=== PATIENT | female | born 1950 | race Caucasian/White ===

== ENCOUNTER 2019-04-13 12:26 | Emergency (ER) | payer MEDICARE ==
[~2019-04-13] VITALS: Ht 165.1 cm; Wt 81.6 kg
[2019-04-13 13:34] LABS: Basophils # (auto) 0 uL; Basophils % (auto) 0.4 % (0.0-2.0); Eosinophils # (auto) 0.2 uL; Eosinophils % (auto) 2.9 % (0.0-7.0); Hematocrit 51.3 % (36.0-46.0); Hemoglobin 17.6 g/dL (12.2-16.2); Lymphocytes # (auto) 1.3 uL; Lymphocytes % (auto) 20.8 % (10.0-50.0); Mean Corpuscular Hemoglobin 32.1 pg (28.0-32.0); Mean Corpuscular Hgb Conc. 34.3 g/dL (32.0-36.0); Mean Corpuscular Volume 93.5 fL (80.0-100.0); Monocytes # (auto) 0.4 uL; Monocytes % (auto) 7.2 % (0.0-12.0); Neutrophils # (auto) 4.2 uL; Neutrophils % (auto) 68.7 % (37.0-80.0); Nucleated Red Blood Cells % 0.1 %; Platelet Count (auto) 167 10^3/uL (140-450); Red Blood Cells 5.49 10^6/uL (4.0-5.20); Red Cell Distribution Width 11.9 % (11.8-14.3); White Blood Cell 6.1 10^3/uL (4.4-10.8)
[2019-04-13] MEDS ORDERED: SODIUM CHLORIDE 0.9% 1,000 ML IV ONE (13:46)
[2019-04-13 13:55] LABS: Albumin 4.2 g/dL (3.4-5.0); Anion Gap 3 (5-15); Blood Urea Nitrogen 22 mg/dL (7-18); Carbon Dioxide 30 mmol/L (21-32); Chloride 108 mmol/L (98-107); Glucose 116 mg/dL (74-106); Potassium 4.2 mmol/L (3.5-5.1); Sodium 141 mmol/L (136-145)
[2019-04-13 14:00] LABS: Alanine Aminotransferase 33 U/L (13-56); Alkaline Phosphatase 84 U/L (45-117); Aspartate Aminotransferase 21 U/L (15-37); BUN/Creatinine Ratio 20.8; Bilirubin, Total 0.7 mg/dL (0.2-1.0); GFR African American 66 mL/min; GFR Non-African American 55 mL/min; Total Protein 7.7 g/dL (6.4-8.2)
[2019-04-13 14:11] LABS: INR 1.01 (0.9-1.15); Partial Thromboplastin Time 28.1 sec (23.64-32.05)
[2019-04-13] MEDS ORDERED: IOHEXOL 350 MG/ML 100ML IJ ONE (15:27)
[2019-04-13 17:00] LABS: Urine Bacteria FEW /hpf (None Seen); Urine Blood Negative /uL (Negative); Urine Mucus FEW (None Seen); Urine Specific Gravity 1.025 (1.001-1.035); Urine WBC 8 /hpf (0 - 5)
[2019-04-13 17:05] VITALS: BP 160/94
[2019-04-13 17:09] LABS: Alcohol, Urine < 3.0 mg/dL (0-5); Amphetamine Screen, Urine NEGATIVE (NEGATIVE); Barbiturate Scree,Urine NEGATIVE (NEGATIVE); Benzodiazephine Screen, Urine NEGATIVE (NEGATIVE); Cannabinoid Screen, Urine NEGATIVE (NEGATIVE); Cocaine Screen, Urine NEGATIVE (NEGATIVE); Opiate Scree,Urine NEGATIVE (NEGATIVE); Phencyclidine Screen, Urine NEGATIVE (NEGATIVE)
== END 2019-04-13 18:07 | disposition home or self-care (01) ==
LOC: EDBD 12:26 → ER 12:30
DX: R55 Syncope and collapse (principal); M54.2 Cervicalgia; R51 Headache; I12.9 Hypertensive chronic kidney disease with stage 1 through stage 4 chronic kidney disease, or unspecified chronic kidney disease; N18.9 Chronic kidney disease, unspecified; N39.0 Urinary tract infection, site not specified; R79.1 Abnormal coagulation profile; E78.5 Hyperlipidemia, unspecified; Z86.73 Personal history of transient ischemic attack (TIA), and cerebral infarction without residual deficits; Z90.710 Acquired absence of both cervix and uterus; Z87.891 Personal history of nicotine dependence; Z88.0 Allergy status to penicillin
CPT/HCPCS: 36415; 70450; 71046; 71275; 80053; 80307; 81001; 83735; 84443; 84484; 85025; 85379; 85610; 85730; 93005; 96360; 96361; 99284; Q9967

== ENCOUNTER 2019-08-12 14:36 | Inpatient (IN) | payer MEDICARE ==
[~2019-08-12] VITALS: Ht 165.1 cm; Wt 83.5 kg
[2019-08-12] MEDS ORDERED: LORazepam 2MG/ML-1ML VIAL IV ONE (15:00)
[2019-08-12] MEDS ORDERED: LABETALOL HCL 5 MG/ML 4ML SYRINGE IV ONE (15:15)
[2019-08-12 15:24] LABS: Basophils # (auto) 0.1 10 ^3/uL (0-0.2); Basophils % (auto) 0.8 % (0.0-2.0); Eosinophils # (auto) 0.4 10 ^3/uL (0-0.8); Eosinophils % (auto) 5.9 % (0.0-7.0); Hematocrit 50.6 % (36.0-46.0); Hemoglobin 17.2 g/dL (12.2-16.2); Lymphocytes # (auto) 1.7 10 ^3/uL (0.4-5.4); Lymphocytes % (auto) 26.3 % (10.0-50.0); Mean Corpuscular Hemoglobin 31.9 pg (28.0-32.0); Mean Corpuscular Hgb Conc. 33.9 g/dL (32.0-36.0); Monocytes # (auto) 0.6 10 ^3/uL (0-1.3); Monocytes % (auto) 8.5 % (0.0-12.0); Neutrophils # (auto) 3.9 10 ^3/uL (1.6-8.6); Neutrophils % (auto) 58.5 % (37.0-80.0); Nucleated Red Blood Cells % 0.1 %; Platelet Count (auto) 156 10^3/uL (140-450); Red Blood Cells 5.38 10^6/uL (4.0-5.20); Red Cell Distribution Width 12.2 % (11.8-14.3); White Blood Cell 6.6 10^3/uL (4.4-10.8)
[2019-08-12 15:45] LABS: Alanine Aminotransferase 25 U/L (13-56); Albumin 3.5 g/dL (3.4-5.0); Anion Gap 4 (5-15); Aspartate Aminotransferase 17 U/L (15-37); Blood Urea Nitrogen 20 mg/dL (7-18); Calcium 9.2 mg/dL (8.5-10.1); Carbon Dioxide 31 mmol/L (21-32); Chloride 104 mmol/L (98-107); GFR African American 67 mL/min; GFR Non-African American 56 mL/min; Glucose 121 mg/dL (74-106); Potassium 3.6 mmol/L (3.5-5.1); Sodium 139 mmol/L (136-145)
[2019-08-12 15:50] LABS: Alkaline Phosphatase 89 U/L (45-117); Bilirubin, Total 0.4 mg/dL (0.2-1.0); Total Protein 7.3 g/dL (6.4-8.2)
[2019-08-12] MEDS ORDERED: SODIUM CHLORIDE 0.9% 1,000 ML IV ONE (17:05)
[2019-08-12 17:15] LABS: Urine Bacteria FEW /hpf (None Seen); Urine Blood Negative /uL (Negative); Urine Specific Gravity 1.011 (1.001-1.035); Urine WBC 2 /hpf (0 - 5)
[2019-08-12] MEDS ORDERED: hydrALAZINE HCL 20 MG/ML VL IV PRN (17:15)
[2019-08-12] MEDS ORDERED: amLODIPine BESYLATE 5 MG TAB PO ONE (17:15)
[2019-08-12] MEDS ORDERED: LISINOPRIL 20 MG TAB PO ONE (17:15)
[2019-08-12] MEDS: SOD CHL 0.45% 1,000 ML IV SCH (17:15)
[2019-08-12] MEDS ORDERED: NITROGLYCERIN 0.4 MG SL TAB SL PRN (17:30)
[2019-08-12] MEDS ORDERED: ALUM & MAG HYDROX-SIMETH LIQ(MAALOX) 30 ML PO PRN (17:30)
[2019-08-12] MEDS ORDERED: DOCUSATE SOD 100 MG CAP PO PRN (17:30)
[2019-08-12] MEDS ORDERED: ONDANSETRON HCL 4 MG/2 ML VIAL IV PRN (17:30)
[2019-08-12] MEDS ORDERED: LORazepam 0.5 MG TAB PO PRN (17:30)
[2019-08-12] MEDS ORDERED: MORPHINE SULF INJ 2 MG/ML SYRINGE 1ML IV PRN ×2 (17:30)
[2019-08-12] MEDS: FUROSEMIDE 20 MG/2 ML VIAL IV SCH (17:52)
[2019-08-12 18:06] LABS: Cholesterol 254 mg/dL (< 200)
[2019-08-12 18:09] LABS: HDL Cholesterol 45 mg/dL (40-59); Triglycerides 465 mg/dL (< 150)
[2019-08-12 20:40] VITALS: BP 117/80
[2019-08-12] MEDS: ATORVASTATIN 20 MG TAB PO SCH (21:26)
[2019-08-12 22:04] VITALS: BP 117/80
[2019-08-13 05:00] VITALS: BP 145/96
[2019-08-13] MEDS: FUROSEMIDE 20 MG/2 ML VIAL IV SCH ×2 (05:36→17:19)
[2019-08-13] MEDS: SOD CHL 0.45% 1,000 ML IV SCH ×2 (06:35→08:13)
[2019-08-13 08:00] VITALS: BP 146/91
[2019-08-13] MEDS: ASPirin 81 mg TAB PO SCH (08:41)
[2019-08-13] MEDS: amLODIPine BESYLATE 5 MG TAB PO SCH (08:41)
[2019-08-13] MEDS: ENOXAPARIN SOD 40 MG/0.4 ML SYRINGE SC SCH (08:42)
[2019-08-13] MEDS: HYDROcodone-ACET 5/325MG TAB PO PRN (08:42)
[2019-08-13] MEDS: LISINOPRIL 20 MG TAB PO SCH (08:42)
[2019-08-13 08:54] LABS: Basophils # (auto) 0 10 ^3/uL (0-0.2); Basophils % (auto) 0.4 % (0.0-2.0); Eosinophils # (auto) 0.4 10 ^3/uL (0-0.8); Eosinophils % (auto) 5.3 % (0.0-7.0); Hematocrit 51.8 % (36.0-46.0); Hemoglobin 17.4 g/dL (12.2-16.2); Lymphocytes # (auto) 1.1 10 ^3/uL (0.4-5.4); Lymphocytes % (auto) 15.3 % (10.0-50.0); Mean Corpuscular Hemoglobin 31.9 pg (28.0-32.0); Mean Corpuscular Hgb Conc. 33.7 g/dL (32.0-36.0); Mean Corpuscular Volume 94.8 fL (80.0-100.0); Monocytes # (auto) 0.5 10 ^3/uL (0-1.3); Monocytes % (auto) 7.7 % (0.0-12.0); Neutrophils # (auto) 5.1 10 ^3/uL (1.6-8.6); Neutrophils % (auto) 71.3 % (37.0-80.0); Nucleated Red Blood Cells % 0.1 %; Platelet Count (auto) 148 10^3/uL (140-450); Red Blood Cells 5.46 10^6/uL (4.0-5.20); Red Cell Distribution Width 12.1 % (11.8-14.3); White Blood Cell 7.1 10^3/uL (4.4-10.8)
[2019-08-13 09:05] LABS: Albumin 3.9 g/dL (3.4-5.0); Calcium 8.9 mg/dL (8.5-10.1); Magnesium 2.9 mg/dL (1.6-2.6); Potassium 4.1 mmol/L (3.5-5.1)
[2019-08-13 09:10] LABS: BUN/Creatinine Ratio 20.8; Bilirubin, Total 0.7 mg/dL (0.2-1.0); INR 0.98 (0.9-1.15); Partial Thromboplastin Time 27.1 sec (23.64-32.05); Phosphorus 4.1 mg/dL (2.5-4.90); Total Protein 7.4 g/dL (6.4-8.2)
[2019-08-13] MEDS ORDERED: FUROSEMIDE 20 MG/2 ML VIAL IV SCH (10:00)
[2019-08-13] MEDS ORDERED: ENOXAPARIN SOD 40 MG/0.4 ML SYRINGE SC SCH (10:00)
[2019-08-13 12:00] VITALS: BP 135/70
[2019-08-13] MEDS ORDERED: ACET-1156 PO (15:25)
[2019-08-13 16:00] VITALS: BP 165/120
[2019-08-13] MEDS ORDERED: LORazepam 2MG/ML-1ML VIAL IV PRN (19:15)
[2019-08-13] MEDS: ATORVASTATIN 20 MG TAB PO SCH (22:38)
[2019-08-13 22:44] VITALS: BP 152/103
[2019-08-14] VITALS (7 sets, daily range): BP systolic 93–127; BP diastolic 6–76
[2019-08-14] MEDS: FUROSEMIDE 20 MG/2 ML VIAL IV SCH ×2 (06:22→18:00)
[2019-08-14] MEDS: LISINOPRIL 20 MG TAB PO SCH (10:00)
[2019-08-14] MEDS: ENOXAPARIN SOD 40 MG/0.4 ML SYRINGE SC SCH (10:00)
[2019-08-14] MEDS: amLODIPine BESYLATE 5 MG TAB PO SCH (10:00)
[2019-08-14] MEDS: SOD CHL 0.45% 1,000 ML IV SCH ×2 (10:08→23:00)
[2019-08-14] MEDS ORDERED: IOHEXOL 350 MG/ML 100ML IJ ONE (11:27)
[2019-08-14] MEDS: ASPirin 81 mg TAB PO SCH (14:43)
[2019-08-14] MEDS: ATORVASTATIN 20 MG TAB PO SCH (22:02)
[2019-08-15] MEDS: HYDROcodone-ACET 5/325MG TAB PO PRN (03:16)
[2019-08-15 05:00] VITALS: BP 139/80
[2019-08-15] MEDS: FUROSEMIDE 20 MG/2 ML VIAL IV SCH (06:07)
[2019-08-15 08:00] VITALS: BP 93/70
[2019-08-15] MEDS: LISINOPRIL 20 MG TAB PO SCH (09:46)
[2019-08-15] MEDS: ENOXAPARIN SOD 40 MG/0.4 ML SYRINGE SC SCH (09:46)
[2019-08-15] MEDS: amLODIPine BESYLATE 5 MG TAB PO SCH (09:46)
[2019-08-15] MEDS: ASPirin 81 mg TAB PO SCH (11:12)
[2019-08-15 11:49] VITALS: BP 93/70
[2019-08-15] MEDS: SOD CHL 0.45% 1,000 ML IV SCH (11:55)
[2019-08-15 12:00] VITALS: BP 99/61
== END 2019-08-15 15:29 | disposition home or self-care (01) | DRG 305 ==
LOC: EDBD 14:36 → ER 14:36 → TELE 14:37 → TELE-EAST 20:40
PROVIDERS: ADMIT Hospitalist; ATTEND Family Medicine
DX: I16.1 Hypertensive emergency (principal); E86.0 Dehydration; D75.1 Secondary polycythemia; E78.5 Hyperlipidemia, unspecified; F32.9 Major depressive disorder, single episode, unspecified; I12.9 Hypertensive chronic kidney disease with stage 1 through stage 4 chronic kidney disease, or unspecified chronic kidney disease; G47.10 Hypersomnia, unspecified; R00.1 Bradycardia, unspecified; E78.00 Pure hypercholesterolemia, unspecified; F17.200 Nicotine dependence, unspecified, uncomplicated; I25.10 Atherosclerotic heart disease of native coronary artery without angina pectoris; R73.9 Hyperglycemia, unspecified; N18.2 Chronic kidney disease, stage 2 (mild); Z79.899 Other long term (current) drug therapy; Z82.49 Family history of ischemic heart disease and other diseases of the circulatory system; Z86.73 Personal history of transient ischemic attack (TIA), and cerebral infarction without residual deficits; Z83.3 Family history of diabetes mellitus; Z90.710 Acquired absence of both cervix and uterus; Z91.19 Patient's noncompliance with other medical treatment and regimen
CPT/HCPCS: 36415; 36600; 70450; 70498; 70551; 71045; 80053; 80061; 81001; 82805; 83036; 83735; 83880; 84100; 84484; 85025; 85610; 85730; 93886; 95819; 99291; G0378; J2405; J3490

== ENCOUNTER 2020-10-15 18:02 | Emergency (ER) | payer MEDICARE, OTHER ==
[~2020-10-15] VITALS: Ht 165.1 cm; Wt 83.9 kg
[~2020-10-15 18:02] MED LIST: ACET-1156 PO
[2020-10-15] MEDS ORDERED: LABETALOL HCL 5 MG/ML 4ML SYRINGE IV ONE ×2 (18:45→21:30)
[2020-10-15 19:35] LABS: Basophils # (auto) 0.1 10 ^3/uL (0-0.2); Eosinophils # (auto) 0.2 10 ^3/uL (0-0.8); Eosinophils % (auto) 2.1 % (0.0-7.0); Nucleated Red Blood Cells % 0.1 %
[2020-10-15 19:36] LABS: Basophils % (auto) 0.8 % (0.0-2.0); Hematocrit 52.9 % (36.0-46.0); Hemoglobin 18.6 g/dL (12.2-16.2); Lymphocytes % (auto) 20.8 % (10.0-50.0); Mean Corpuscular Hemoglobin 31.6 pg (28.0-32.0); Mean Corpuscular Hgb Conc. 35.2 g/dL (32.0-36.0); Mean Corpuscular Volume 89.7 fL (80.0-100.0); Monocytes % (auto) 9.8 % (0.0-12.0); Neutrophils # (auto) 6.5 10 ^3/uL (1.6-8.6); Neutrophils % (auto) 66.5 % (37.0-80.0); Red Cell Distribution Width 12.4 % (11.8-14.3); White Blood Cell 9.8 10^3/uL (4.4-10.8)
[2020-10-15 19:48] LABS: Alanine Aminotransferase 25 U/L (13-56); Albumin 3.7 g/dL (3.4-5.0); Anion Gap 7 (5-15); Aspartate Aminotransferase 14 U/L (15-37); BUN/Creatinine Ratio 18.1; Blood Urea Nitrogen 17 mg/dL (7-18); Calcium 8.9 mg/dL (8.5-10.1); Carbon Dioxide 26 mmol/L (21-32); Chloride 103 mmol/L (98-107); GFR African American 76 mL/min; GFR Non-African American 63 mL/min; Glucose 119 mg/dL (74-106); Magnesium 2.7 mg/dL (1.6-2.6); Potassium 3.4 mmol/L (3.5-5.1); Sodium 136 mmol/L (136-145)
[2020-10-15 19:58] LABS: Alkaline Phosphatase 96 U/L (45-117); Bilirubin, Total 0.7 mg/dL (0.2-1.0); Total Protein 7.4 g/dL (6.4-8.2)
[2020-10-16 01:02] VITALS: BP 150/68
== END 2020-10-16 01:03 | disposition home or self-care (01) ==
LOC: ER 18:02 → EDBD 18:02 → ER 10-16 01:03
DX: R51.9 Headache, unspecified (principal); R11.2 Nausea with vomiting, unspecified; I10 Essential (primary) hypertension; I45.10 Unspecified right bundle-branch block; E78.00 Pure hypercholesterolemia, unspecified; F32.9 Major depressive disorder, single episode, unspecified; Z86.73 Personal history of transient ischemic attack (TIA), and cerebral infarction without residual deficits; Z90.710 Acquired absence of both cervix and uterus; Z90.89 Acquired absence of other organs
CPT/HCPCS: 36415; 70450; 71045; 80053; 83735; 84484; 85025; 93005; 96374; 96376; 99285; J3490

== ENCOUNTER 2021-03-03 20:53 | Inpatient (IN) | payer OTHER ==
[~2021-03-03] VITALS: Ht 165.1 cm; Wt 110.6 kg
[2021-03-03] MEDS ORDERED: LABETALOL HCL 5 MG/ML 4ML SYRINGE IV ONE (21:15)
[2021-03-03 22:13] LABS: Basophils # (auto) 0.1 10 ^3/uL (0-0.2); Eosinophils # (auto) 0.2 10 ^3/uL (0-0.8); Mean Corpuscular Hemoglobin 30.9 pg (28.0-32.0); Mean Corpuscular Hgb Conc. 33.2 g/dL (32.0-36.0); Red Cell Distribution Width 12.3 % (11.8-14.3)
[2021-03-03 22:15] LABS: Eosinophils % (auto) 2.3 % (0.0-7.0); Hemoglobin 18.8 g/dL (12.2-16.2); Lymphocytes # (auto) 1.6 10 ^3/uL (0.4-5.4); Lymphocytes % (auto) 21.7 % (10.0-50.0); Monocytes # (auto) 0.6 10 ^3/uL (0-1.3); Monocytes % (auto) 8.7 % (0.0-12.0); Neutrophils # (auto) 4.8 10 ^3/uL (1.6-8.6); Neutrophils % (auto) 66.3 % (37.0-80.0); Nucleated Red Blood Cells % 0.1 %; Red Blood Cells 6.09 10^6/uL (4.0-5.20); White Blood Cell 7.2 10^3/uL (4.4-10.8)
[2021-03-03 22:18] LABS: Hematocrit 56.7 % (36.0-46.0)
[2021-03-03] MEDS ORDERED: OXYMETAZOLINE HCL 0.05 % NASAL SPRAY 15ML EACHNOSTRI ONE (22:30)
[2021-03-03 22:32] LABS: Albumin 3.7 g/dL (3.4-5.0); Calcium 8.7 mg/dL (8.5-10.1); Potassium 4.1 mmol/L (3.5-5.1)
[2021-03-03 22:33] LABS: INR 0.99 (0.9-1.15)
[2021-03-03 22:39] LABS: Bilirubin, Total 0.5 mg/dL (0.2-1.0); Total Protein 7.4 g/dL (6.4-8.2)
[2021-03-03 22:41] LABS: BUN/Creatinine Ratio 22.3
[2021-03-03] MEDS ORDERED: hydrALAZINE HCL 20 MG/ML VL IV ONE (22:45)
[2021-03-03] MEDS ORDERED: ATROPINE SULF 0.5 MG/5ML SYR ONE (23:17)
[2021-03-03] MEDS ORDERED: EPINEPHrine HCL 1 MG/10 ML SYRG ONE (23:19)
[2021-03-04] MEDS ORDERED: SODIUM CHLORIDE 0.9% 1,000 ML IV ONE
[2021-03-04 01:38] LABS: Magnesium 1.1 mg/dL (1.6-2.6)
[2021-03-04] MEDS: MAGNESIUM SULFATE 1GM/100ML 100 ML IV SCH ×3 (02:06→03:08)
[2021-03-04] MEDS ORDERED: NITROGLYCERIN 0.4 MG SL TAB SL PRN (05:30)
[2021-03-04] MEDS ORDERED: MORPHINE SULFATE INJECTION 2 MG/ML SYRG IV PRN (05:30)
[2021-03-04] MEDS ORDERED: ACETAMINOPHEN 325 MG TAB PO PRN (05:30)
[2021-03-04] MEDS ORDERED: DOCUSATE SOD 100 MG CAP PO PRN (05:30)
[2021-03-04] MEDS ORDERED: DOPamine 1600MCG/ML D5W 250 ML IV ONE (05:50)
[2021-03-04] MEDS ORDERED: DOPamine 1600MCG/ML D5W 250 ML IV SCH ×2 (06:00)
[2021-03-04 06:40] VITALS: BP 145/80
[2021-03-04 08:00] VITALS: BP 145/56
[2021-03-04] MEDS: FAMOTIDINE (10MG/ML) 2ML VL IV SCH (08:01)
[2021-03-04] MEDS: MULTIPLE VITAMIN TAB PO SCH (08:01)
[2021-03-04 08:09] LABS: Basophils # (auto) 0 10 ^3/uL (0-0.2); Basophils % (auto) 0.5 % (0.0-2.0); Eosinophils # (auto) 0.1 10 ^3/uL (0-0.8); Eosinophils % (auto) 1.5 % (0.0-7.0); Hematocrit 50.7 % (36.0-46.0); Hemoglobin 17.1 g/dL (12.2-16.2); Lymphocytes # (auto) 1.2 10 ^3/uL (0.4-5.4); Lymphocytes % (auto) 14.7 % (10.0-50.0); Mean Corpuscular Hemoglobin 31.2 pg (28.0-32.0); Mean Corpuscular Hgb Conc. 33.7 g/dL (32.0-36.0); Mean Corpuscular Volume 92.6 fL (80.0-100.0); Monocytes # (auto) 0.7 10 ^3/uL (0-1.3); Monocytes % (auto) 8.9 % (0.0-12.0); Neutrophils # (auto) 6.1 10 ^3/uL (1.6-8.6); Neutrophils % (auto) 74.4 % (37.0-80.0); Nucleated Red Blood Cells % 0.1 %; Red Blood Cells 5.47 10^6/uL (4.0-5.20); Red Cell Distribution Width 12.4 % (11.8-14.3); White Blood Cell 8.2 10^3/uL (4.4-10.8)
[2021-03-04 08:26] LABS: Alanine Aminotransferase 17 U/L (13-56); Albumin 3.2 g/dL (3.4-5.0); Anion Gap 7 (5-15); Aspartate Aminotransferase 12 U/L (15-37); BUN/Creatinine Ratio 26.1; Blood Urea Nitrogen 23 mg/dL (7-18); Calcium 8.2 mg/dL (8.5-10.1); Carbon Dioxide 27 mmol/L (21-32); Chloride 109 mmol/L (98-107); GFR African American 82 mL/min; GFR Non-African American 68 mL/min; Glucose 131 mg/dL (74-106); Potassium 4.4 mmol/L (3.5-5.1); Sodium 143 mmol/L (136-145)
[2021-03-04 08:28] LABS: Alkaline Phosphatase 74 U/L (45-117); Bilirubin, Total 0.6 mg/dL (0.2-1.0); Total Protein 6.4 g/dL (6.4-8.2)
[2021-03-04 09:00] VITALS: BP 145/86
[2021-03-04] MEDS ORDERED: INFLUENZA QUAD 2021-2022 0.5 ML SYRG IM ONE (09:15)
[2021-03-04] MEDS ORDERED: HEPARIN SODIUM (PORCINE) 5000 UNITS/ML 1ML VIAL ONE (09:29)
[2021-03-04] MEDS ORDERED: MIDAZOLAM HCL 2MG/2ML 2ml VIAL (1mg/ml) ONE (09:30)
[2021-03-04] MEDS ORDERED: IODIXANOL 320MG/ML 100ML BTL IV ONE (09:30)
[2021-03-04] MEDS ORDERED: fentaNYL CITRATE 100 MCG/2 ML VL ONE (09:30)
[2021-03-04] MEDS ORDERED: LIDOCAINE 2%HCL (LOCAL ANESTH.) INJ 20ML MDV ONE (09:30)
[2021-03-04] MEDS ORDERED: VERAPAMIL 2.5MG/ML INJ 2ML VIAL IV ONE (09:30)
[2021-03-04] MEDS ORDERED: ANGIOMAX 250 MG VIAL IV ONE (09:31)
[2021-03-04] MEDS ORDERED: SODIUM CHL 0.9% 50 ML ONE (09:31)
[2021-03-04] MEDS ORDERED: ZINC SULFATE 220mg CAP or TAB PO SCH (10:00)
[2021-03-04] MEDS ORDERED: ASCORBIC ACID 500 MG TAB PO SCH (10:00)
[2021-03-04 10:34] LABS: INR 1.01 (0.9-1.15); Partial Thromboplastin Time 25.2 sec (23.6-33.0)
[2021-03-04 10:44] LABS: Cholesterol 250 mg/dL (< 200)
[2021-03-04 10:46] LABS: HDL Cholesterol 47 mg/dL (40-59); LDL Cholesterol 171 mg/dL (< 100); Triglycerides 134 mg/dL (< 150)
[2021-03-04] MEDS ORDERED: TICAGRELOR 90 MG TAB ONE (11:15)
[2021-03-04] MEDS ORDERED: ASPirin 325 MG TAB ONE (11:21)
[2021-03-04 17:00] VITALS: BP 138/91
[2021-03-04 21:30] VITALS: BP 132/85
[2021-03-04] MEDS: TICAGRELOR 90 MG TAB PO SCH (21:41)
[2021-03-04] MEDS: ATORVASTATIN 20 MG TAB PO SCH (21:41)
[2021-03-05] MEDS: HYDROcodone-ACET 5/325MG TAB PO PRN ×2 (03:55→21:41)
[2021-03-05 05:00] VITALS: BP 157/89
[2021-03-05 05:52] LABS: Basophils # (auto) 0.1 10 ^3/uL (0-0.2); Basophils % (auto) 1.2 % (0.0-2.0); Eosinophils # (auto) 0.3 10 ^3/uL (0-0.8); Eosinophils % (auto) 4.3 % (0.0-7.0); Hematocrit 46.3 % (36.0-46.0); Hemoglobin 15.5 g/dL (12.2-16.2); Lymphocytes % (auto) 15.2 % (10.0-50.0); Mean Corpuscular Hgb Conc. 33.5 g/dL (32.0-36.0); Mean Corpuscular Volume 92.5 fL (80.0-100.0); Monocytes # (auto) 0.7 10 ^3/uL (0-1.3); Monocytes % (auto) 9.7 % (0.0-12.0); Neutrophils # (auto) 4.7 10 ^3/uL (1.6-8.6); Neutrophils % (auto) 69.6 % (37.0-80.0); Nucleated Red Blood Cells % 0.1 %; Red Cell Distribution Width 12.2 % (11.8-14.3); White Blood Cell 6.8 10^3/uL (4.4-10.8)
[2021-03-05 06:14] LABS: BUN/Creatinine Ratio 24.4; Calcium 8.4 mg/dL (8.5-10.1); Potassium 4.1 mmol/L (3.5-5.1)
[2021-03-05 06:16] LABS: Bilirubin, Total 0.8 mg/dL (0.2-1.0); Total Protein 5.5 g/dL (6.4-8.2)
[2021-03-05 09:00] VITALS: BP 128/66
[2021-03-05] MEDS: FAMOTIDINE (10MG/ML) 2ML VL IV SCH (10:00)
[2021-03-05] MEDS: MULTIPLE VITAMIN TAB PO SCH (10:00)
[2021-03-05] MEDS: TICAGRELOR 90 MG TAB PO SCH ×2 (10:00→21:30)
[2021-03-05] MEDS ORDERED: LISINOPRIL 5 MG TAB PO SCH (10:00)
[2021-03-05] MEDS: ASPirin 81 mg TAB PO SCH (10:00)
[2021-03-05] MEDS: LISINOPRIL 10 MG TAB PO SCH (10:01)
[2021-03-05 13:00] VITALS: BP 151/83
[2021-03-05 17:00] VITALS: BP 177/99
[2021-03-05] MEDS: hydrALAZINE HCL 20 MG/ML VL IV PRN (18:43)
[2021-03-05] MEDS: ATORVASTATIN 20 MG TAB PO SCH (21:31)
[2021-03-05 22:00] VITALS: BP 154/102
[2021-03-06 05:00] VITALS: BP 158/101
[2021-03-06] MEDS: ASPirin 81 mg TAB PO SCH (10:30)
[2021-03-06] MEDS: TICAGRELOR 90 MG TAB PO SCH ×2 (10:30→21:38)
[2021-03-06] MEDS: MULTIPLE VITAMIN TAB PO SCH (10:30)
[2021-03-06] MEDS: FAMOTIDINE (10MG/ML) 2ML VL IV SCH (10:30)
[2021-03-06] MEDS: LISINOPRIL 10 MG TAB PO SCH (10:31)
[2021-03-06 16:19] VITALS: BP 180/105
[2021-03-06] MEDS: hydrALAZINE HCL 20 MG/ML VL IV PRN ×2 (16:40→21:56)
[2021-03-06] MEDS: LORazepam 0.5 MG TAB PO PRN (17:26)
[2021-03-06 17:35] VITALS: BP 160/98
[2021-03-06] MEDS: ATORVASTATIN 20 MG TAB PO SCH (21:38)
[2021-03-06 22:00] VITALS: BP 164/103
[2021-03-06] MEDS: ONDANSETRON HCL 4 MG/2 ML VIAL IV PRN (23:07)
[2021-03-07] MEDS: LORazepam 0.5 MG TAB PO PRN (01:34)
[2021-03-07] MEDS: hydrALAZINE HCL 20 MG/ML VL IV PRN ×2 (01:40→05:28)
[2021-03-07 05:00] VITALS: BP 167/101
[2021-03-07 09:16] VITALS: BP 151/97
[2021-03-07] MEDS: FAMOTIDINE (10MG/ML) 2ML VL IV SCH ×2 (09:32→10:00)
[2021-03-07] MEDS: ONDANSETRON HCL 4 MG/2 ML VIAL IV PRN (09:32)
[2021-03-07] MEDS: LISINOPRIL 10 MG TAB PO SCH (09:32)
[2021-03-07] MEDS: MULTIPLE VITAMIN TAB PO SCH (09:32)
[2021-03-07] MEDS: ASPirin 81 mg TAB PO SCH (09:32)
[2021-03-07] MEDS: TICAGRELOR 90 MG TAB PO SCH (09:32)
[2021-03-07] MEDS: HYDROcodone-ACET 5/325MG TAB PO PRN (09:32)
[2021-03-07 13:51] VITALS: BP 151/97
[2021-03-07] MEDS ORDERED: SALINE 0.65 % NASAL SPRAY 45ML BOTTLE EACHNOSTRI SCH (18:00)
== END 2021-03-07 17:30 | disposition home or self-care (01) | DRG 247 ==
LOC: EDBD 20:53 → ER 20:53 → TELE 03-04 05:23 → TELE-CENTR 03-04 06:35
PROVIDERS: ADMIT Nurse Practitioner Family; ATTEND Internal Medicine
PROC: 027034Z Dilation of Coronary Artery, One Artery with Drug-eluting Intraluminal Device, Percutaneous Approach (ICD-10-PCS; principal; 2021-03-04)
PROC: 4A023N7 Measurement of Cardiac Sampling and Pressure, Left Heart, Percutaneous Approach (ICD-10-PCS; 2021-03-04)
PROC: B211YZZ Fluoroscopy of Multiple Coronary Arteries using Other Contrast (ICD-10-PCS; 2021-03-04)
PROC: B215YZZ Fluoroscopy of Left Heart using Other Contrast (ICD-10-PCS; 2021-03-04)
DX: I44.7 Left bundle-branch block, unspecified (principal); R04.0 Epistaxis; R00.1 Bradycardia, unspecified; I95.9 Hypotension, unspecified; E83.41 Hypermagnesemia; I16.0 Hypertensive urgency; Z20.822 Contact with and (suspected) exposure to COVID-19; E78.5 Hyperlipidemia, unspecified; I25.10 Atherosclerotic heart disease of native coronary artery without angina pectoris; I10 Essential (primary) hypertension; F32.A Depression, unspecified; R42 Dizziness and giddiness; Z86.73 Personal history of transient ischemic attack (TIA), and cerebral infarction without residual deficits; Z83.3 Family history of diabetes mellitus; Z79.82 Long term (current) use of aspirin; Z88.0 Allergy status to penicillin; Z79.899 Other long term (current) drug therapy; Z82.49 Family history of ischemic heart disease and other diseases of the circulatory system; Z90.710 Acquired absence of both cervix and uterus
CPT/HCPCS: 36415; 71045; 80053; 80061; 82306; 83036; 83735; 84443; 84484; 85025; 85610; 85730; 87426; 92928; 93005; 93306; 93458; 93886; 96361; 96374; 96375; 99152; 99153; C1874; G0378; J0461; J2250; J2405; J3490; Q9967